=== PATIENT | female | born 1980 | race Caucasian/White ===

== ENCOUNTER 2016-06-08 17:09 | Emergency (ER) | payer OTHER ==
[2016-06-08 17:24] VITALS: BP 168/88; PULSE 78; RESP 18; TEMP 98; O2SAT 97
[2016-06-08] MEDS ORDERED: MECLIZINE HCL 25 MG TAB PO ONE (17:50)
[2016-06-08] MEDS ORDERED: ONDANSETRON DISINTEGRATING 4 MG TAB PO ONE (17:50)
--- NOTE | 2016-06-08 18:00 | UCPHY ---
H & P Time Seen by Provider: 06/08/16 17:38 Patient Type: Established HPI/ROS: This patient complains of dizziness that sounds consistent with vertigo-worse with head movement-a while bleed feeling. More of a spinning sensation then lightheaded. No exacerbating or relieving factors other than the worsening with head movement had URI symptoms last week consisting of nasal congestion sore throat that has resolved. She has some nausea associated with the symptoms. She feels anxious as well. She has a history of anxiety and these new symptoms are causing her to be more anxious. ROS: No fevers. No other constitutional symptoms. HEENT: No headache. No visual changes. No ear pain. No tinnitus. Neuro: No focal numbness tingling or weakness. GI: No belly pain. She has a mild constipation but still having bowel movements. 10 point ROS is otherwise negative. Smoking Status: Never smoked Physical Exam: Physical exam: Vital signs are normal General: Patient is in no acute distress. HEENT: Atraumatic. Nose atraumatic. Ears: Clear bilaterally with no hemotympanum. Oropharynx: No dental trauma or malocclusion. No intraoral lacerations. Eyes: Pupils are equal and reactive to light. Extraocular motions are intact. Optic fundi: Clear with no papilledema or hemorrhage. Neck: Supple Lungs: Clear to auscultation bilaterally Cardiac: Regular rate and rhythm no murmur gallop or rub. Abdomen: Soft nontender no organomegaly Neuro: GCS of 15. Cranial nerves II through XII intact. Cerebellar exam is normal as judged by symmetric rapid hand movements bilaterally. No pronator drift. No sensory or motor deficits are appreciated. The patient does have increase vertiginous symptoms with head movement. No lateral nystagmus Differential diagnosis: Benign positional vertigo, Meniere's, anxiety, viral illness Constitutional: Initial Vital Signs Temperature (C) 36.6 C 06/08/16 17:22 Heart Rate 78 06/08/16 17:22 Respiratory Rate 18 06/08/16 17:22 Blood Pressure 168/88 H 06/08/16 17:22 O2 Sat (%) 97 06/08/16 17:22 O2 Delivery Mode Room Air Allergies/Adverse Reactions: No Known Allergies Allergy (Verified 12/28/15 16:30) Home Medications: Medication Instructions Recorded Lorazepam [Ativan] 0.5 mg PO 10/06/14 QUEtiapine FUMARATE [SEROquel] 600 mg PO DAILY 10/06/14 lamOTRIGine [Lamictal] 300 mg PO 10/06/14 Effexor Xr 11/01/15 Meclizine HCl [Meclizine HCl 25 mg 25 mg PO TID PRN #20 tab 06/08/16 (RX,OTC)] Ondansetron Odt [Zofran Odt] 4 - 8 mg PO Q4PRN PRN #4 tab 06/08/16 MDM/Departure - MDM Medications Given: Discontinued Medications Meclizine HCl (Meclizine Hcl) 25 mg PO EDNOW ONE Stop: 06/08/16 17:51 Last Admin: 06/08/16 18:03 Dose: 25 mg Ondansetron HCl (Zofran Odt) 4 mg PO EDNOW ONE Stop: 06/08/16 17:51 Last Admin: 06/08/16 18:04 Dose: 4 mg ED Course/Re-evaluation: No clinical evidence of central vertigo or other concerning findings. Counseled patient regarding benign positional vertigo. - Depart Disposition: Home, Routine, Self-Care Clinical Impression: Nausea Benign positional vertigo Qualifiers: Laterality: unspecified laterality Qualified Code(s): H81.10 - Benign paroxysmal vertigo, unspecified ear Condition: Good Instructions: Benign Paroxysmal Positional Vertigo (ED) Additional Instructions: Diagnoses:. Benign positional vertigo 2. Nausea Plan: Meclizine as needed for dizziness Zofran as needed for nausea Humidifier Her symptoms should improve over the next 3-7 days. Follow up with ear nose throat physician for further evaluation if he have any ongoing symptoms last beyond that time frame. Return for any significant worsening despite the treatment plan. Prescriptions: Meclizine HCl [Meclizine HCl 25 mg (RX,OTC)] 25 mg PO TID PRN #20 tab PRN Reason: vertigo Ondansetron Odt [Zofran Odt] 4 - 8 mg PO Q4PRN PRN #4 tab PRN Reason: Vomiting Referrals: ESTELA GUARDADO [Primary Care Provider] - As per Instructions Maricel Don MD [Medical Doctor] - As per Instructions - PQRS PQRS Measurement: NA
== END 2016-06-08 18:08 | disposition home or self-care (01) ==
LOC: CED 17:09
DX: R11.0 Nausea (principal); H81.10 Benign paroxysmal vertigo, unspecified ear
CPT/HCPCS: 99214-PO; G0463-PO

== ENCOUNTER 2017-01-28 13:34 | Emergency (ER) | payer OTHER ==
[2017-01-28 13:43] VITALS: BP 115/80; PULSE 89; RESP 18; TEMP 97.3; O2SAT 94
--- NOTE | 2017-01-28 13:55 | EDPHY ---
HPI/HX/ROS/PE/MDM Narrative: CHIEF COMPLAINT: Vertigo HPI: The patient is a 36-year-old female with multiple medical problems including anxiety and previous diagnosis of benign peripheral positional vertigo earlier this year. The patient states that 4 days ago, she consumed a large cup of coffee which was followed by acute onset of severe vertigo. This has waxed and waned over the last few days and is relieved with meclizine. She denies any visual changes, falling, headache, neck pain. No recent fall or injury. She states this feels exactly the same as the last time she was seen for BPPV. She has not followed up with a specialist. She denies fever, numbness or weakness. She denies recent cold symptoms. REVIEW OF SYSTEMS: Aside from elements discussed in the HPI, a comprehensive 10-point review of systems was reviewed and is negative. PMH: Includes lap band, history of anxiety. History of BPPV. SOCIAL HISTORY: Denies alcohol or drug abuse. PHYSICAL EXAM: General:Patient is alert, in no acute distress. ENT:Eyes are normal to inspection. ENT inspection normal. No nystagmus noted. EOMI. Bilateral TMs are normal to inspection. Neck: Normal inspection. Full range of motion. Respiratory:No respiratory distress. Breath sounds normal bilaterally. Cardiovascular: Regular rate and rhythm. Strong peripheral pulses. Normal cap refill. Skin: Normal color. No rash. Warm and dry. Extremities: Normal appearance. Full range of motion. Neuro: Oriented x3. Normal motor function. Normal sensory function. No pronator drift. Normal finger-nose bilaterally. No dysdiadochokinesis. Normal heel-stovall bilaterally. Normal gait. MDM: This patient presents with signs and symptoms of BPPV. There is no evidence for cerebellar disease, particularly cerebellar stroke. Given her prior history of this as well as the acute onset of her symptoms, I think she is very low risk for more serious cause of vertigo. I do not think emergent MRI is indicated. The patient's symptoms are well controlled with meclizine and I think she is appropriate for follow-up with a ENT specialist. We discussed strict return precautions and she is comfortable with this plan. General Time Seen by Provider: 01/28/17 13:38 Initial Vital Signs: Initial Vital Signs Temperature (C) 36.3 C 01/28/17 13:40 Heart Rate 89 01/28/17 13:40 Respiratory Rate 18 01/28/17 13:40 Blood Pressure 115/80 01/28/17 13:40 O2 Sat (%) 94 01/28/17 13:40 O2 Delivery Mode Room Air Allergies/Adverse Reactions: No Known Allergies Allergy (Verified 01/28/17 13:39) Home Medications: Medication Instructions Recorded LORazepam [Ativan] 0.5 mg PO 10/06/14 QUEtiapine FUMARATE [SEROquel] 600 mg PO DAILY 10/06/14 lamoTRIgine [Lamictal] 300 mg PO 10/06/14 Effexor Xr 11/01/15 Departure - Departure Disposition: Home, Routine, Self-Care Clinical Impression: BPPV (benign paroxysmal positional vertigo) Condition: Good Instructions: Benign Paroxysmal Positional Vertigo (ED) Additional Instructions: Follow-up with an corporate specialist within 1-2 weeks. Return to the emergency department for severe headache, change in vision or worsening of symptoms. Continue taking meclizine. Referrals: ESTELA GUARDADO [Primary Care Provider] - As per Instructions Saeed Rodrigues MD [Medical Doctor] - As per Instructions
== END 2017-01-28 14:00 | disposition home or self-care (01) ==
LOC: CED 13:34
DX: H81.10 Benign paroxysmal vertigo, unspecified ear (principal)